=== PATIENT | female | born 1995 | race Caucasian/White ===

== ENCOUNTER 2017-07-14 18:43 | Emergency (ER) | payer OTHER ==
[~2017-07-14] VITALS: Ht 152.4 cm; Wt 77.3 kg
[2017-07-14 19:11] VITALS: BP 119/75
== END 2017-07-14 21:41 | disposition home or self-care (01) ==
LOC: ED 18:43
DX: O23.42 Unspecified infection of urinary tract in pregnancy, second trimester (principal)
CPT/HCPCS: 87804